=== PATIENT | female | born 1990 | race Caucasian/White ===

== ENCOUNTER 2016-05-27 18:42 | Emergency (ER) | payer OTHER ==
[2016-05-27 18:56] VITALS: BP 120/67; PULSE 73; TEMP 97.8; BMI 27.6
[2016-05-27 20:06] LABS: URINE APPEARANCE CLEAR; URINE BILIRUBIN NEGATIVE (NEGATIVE); URINE BLOOD NEGATIVE (NEGATIVE); URINE COLOR YELLOW; URINE GLUCOSE (UA) NEGATIVE (NEGATIVE); URINE KETONE NEGATIVE (NEGATIVE); URINE LEUK ESTERASE NEGATIVE (NEGATIVE); URINE NITRITE NEGATIVE (NEGATIVE); URINE PROTEIN NEGATIVE (NEGATIVE); URINE UROBILINOGEN NEGATIVE E.U./dl (0.2-1.0)
--- NOTE | 2016-05-27 20:57 | PDOC ---
History of Present Illness - General Chief Complaint: Urinary Problem Stated Complaint: URINARY PROBLEM Time Seen by Provider: 05/27/16 20:42 History Source: Patient Exam Limitations: No Limitations - History of Present Illness Travel History: No Initial Comments: 05/27/16 20:55 25 yr female with one month of urinary incontinence, frequency and urgency, no burning. Pt has right low back pain to flank history of kidney stones. no vomiting or diarrhea no fever, no vaginal discharge. Past History - Past Medical History Allergies/Adverse Reactions: Allergies Allergy/AdvReac Type Severity Reaction Status Date / Time No Known Allergies Allergy Verified 05/27/16 18:52 Home Medications: Ambulatory Orders No Home Medications 0 dose .ROUTE UTDICT 05/28/12 Ibuprofen [Motrin -] 600 mg PO TID #21 tablet 09/23/13 Pantoprazole Sodium [Protonix] 40 mg PO DAILY #20 tablet. 09/23/13 Kidney Stones: Yes Suicide Attempt (Hx): No - Surgical History Cholecystectomy: Yes - Immunization History Immunization Up to Date: Yes - Psycho/Social/Smoking Cessation Hx Anxiety: No Suicidal Ideation: No Smoking Status: Yes Smoking History: Current every day smoker Have you smoked in the past 12 months: Yes Number of Cigarettes Smoked Daily: 4 Information on smoking cessation initiated: No 'Breaking Loose' booklet given: 09/22/13 Hx Alcohol Use: Yes (occasion) Abd/GI Specific PMHX - Complaint Specific PMHX Colitis: No Gall Bladder Disease: Yes GERD: No Hepatitis: No Irritable Bowel Synd (IBS): No Pancreatitis: No GI Ulcer Disease: No Review of Systems - Review of Systems Able to Perform ROS?: Yes Is the patient limited [place] proficient: No Constitutional: No: Symptoms Reported HEENTM: No: Symptoms Reported Respiratory: No: Symptoms reported Cardiac (ROS): No: Symptoms Reported ABD/GI: No: Symptoms Reported : Yes: Symptoms Reported, See HPI, Frequency, Urgency Musculoskeletal: Yes: Back Pain Integumentary: No: Symptoms Reported Neurological: No: Symptoms reported *Physical Exam - Vital Signs Last Vital Signs Temp Pulse Resp BP Pulse Ox 97.8 F 73 19 120/67 99 05/27/16 18:52 05/27/16 18:52 05/27/16 18:52 05/27/16 18:52 05/27/16 18:52 - Physical Exam General Appearance: Yes: Nourished, Appropriately Dressed HEENT: positive: EOMI, MARÍA, TMs Normal, Pharynx Normal Neck: positive: Supple Respiratory/Chest: positive: Lungs Clear, Normal Breath Sounds Cardiovascular: positive: Regular Rhythm, Regular Rate Female Pelvic Exam: positive: normal external exam. negative: CMT, discharge, adnexal tenderness Gastrointestinal/Abdominal: positive: Normal Bowel Sounds, Soft Musculoskeletal: positive: Normal Inspection Extremity: positive: Normal Capillary Refill, Normal Inspection, Normal Range of Motion Integumentary: positive: Normal Color, Dry, Warm Neurologic: positive: Fully Oriented, Alert, Normal Mood/Affect, Normal Response , Motor Strength 08/26 ED Treatment Course - LABORATORY CBC & Chemistry Diagram: 05/27/16 21:10 05/27/16 21:10 - ADDITIONAL ORDERS Additional order review: Laboratory Results 05/27/16 19:35 Urine Color Yellow Urine Appearance Clear Urine pH 6.0 Ur Specific [place] 1.023 Urine Protein Negative Urine Glucose (UA) Negative Urine Ketones Negative Urine Blood Negative Urine Nitrite Negative Urine Bilirubin Negative Urine Urobilinogen Negative Ur Leukocyte Esterase Negative Urine HCG, Qual Negative - RADIOLOGY Radiology Studies Ordered: Category Date Time Status KIDNEY / RENAL US [US] Stat Ultrasound 05/27/16 20:53 Ordered Progress Note - Progress Note Progress Note: spoke with patient this morning regarding her US results from yesterday. I have explained the results with her. Pt is going to follow with urology at [facility] this week. Pt will obtain copies of her US to bring to the [facility]. Medical Decision Making - Medical Decision Making 05/27/16 20:56 cc: urinary urgency, incontinence frequency for one month with low back pain will check UA r/o UTI, kidney stone *DC/Admit/Observation/Transfer Diagnosis at time of Disposition: Urinary incontinence in female - Discharge Dispostion Disposition: HOME Condition at time of disposition: Good - Referrals Referrals: Nicole Askew [Primary Care Provider] - Shree Brown MD [Staff Physician] - - Patient Instructions Additional Instructions: follow with the urologist or with your whizzer for follow up I will call you tomorrow with the results of the ultrasound all blood work done today was within normal limits
[2016-05-27 21:32] LABS: BASOPHIL 0.4 % (0-2.0); EOSINOPHIL 1.9 % (0-4.5); MCH 29.5 pg (25.7-33.7); MCHC 33.5 g/dl (32.0-36.0); MEAN CELL VOLUME 88.1 fl (80-96); NEUTROPHILS 57.7 % (42.8-82.8); PLATELET COUNT 289 K/MM3 (134-434); RDW 12.8 % (11.6-15.6); WHITE BLOOD COUNT 11.6 K/mm3 (4.0-10.0)
[2016-05-27 22:01] LABS: ALBUMIN 4.1 g/dl (3.4-5.0); ANION GAP 9 (8-16); CALCIUM 9.6 mg/dL (8.5-10.1); CO2 26 mmol/L (21-32); CREATININE 0.7 mg/dL (0.55-1.02); GLUCOSE,RANDOM 82 mg/dL (74-106); SGOT/AST 29 U/L (15-37); SGPT/ALT 35 U/L (12-78)
[2016-05-27 22:04] LABS: ALK PHOS 64 U/L (45-117); BILIRUBIN,TOTAL 0.6 mg/dL (0.2-1.0); TOT PROT 7.4 g/dl (6.4-8.2)
== END 2016-05-27 22:51 | disposition home or self-care (01) ==
LOC: JERFT 18:42
DX: N39.498 Other specified urinary incontinence (principal)
CPT/HCPCS: 36415; 76775-TC; 76856-TC; 80053; 81003; 84703; 85025; 87086; 87491; 87591; 99281-25

== ENCOUNTER 2016-08-31 11:52 | Day surgery (SDC) | payer OTHER ==
[2016-08-30 17:13] VITALS: BMI 28.3
[2016-08-31] MEDS ORDERED: PROPOFOL 20 ML ONE ×2 (12:46)
[2016-08-31] MEDS ORDERED: MIDAZOLAM HCL 2 MG/2 ML SINGLE DOSE VIAL ONE (12:46)
[2016-08-31] MEDS ORDERED: DEXAMETHASONE SOD PHOSPHATE 4 MG/1 ML VIAL ONE (12:51)
[2016-08-31] MEDS ORDERED: KETOROLAC TROMETHAMINE 30 MG/1 ML VIAL ONE (12:51)
[2016-08-31] MEDS ORDERED: ceFAZolin SODIUM 1 GM VIAL ONE (13:13)
[2016-08-31] MEDS ORDERED: ceFAZolin SODIUM 1 GM VIAL IVPB ONE (13:26)
[2016-08-31] MEDS ORDERED: oxyCODONE HCL 5 MG TABLET PO PRN ×2 (13:50→14:54)
[2016-08-31] MEDS ORDERED: OXYCODONE/APAP 5/325MG COMBO TABLET PO PRN (13:55)
[2016-08-31] MEDS ORDERED: ONDANSETRON 4 MG/2 ML VIAL IVPUSH PRN (14:12)
[2016-08-31] MEDS ORDERED: LACTATED RINGERS SOLUTION 1,000 ML IV SCH (14:15)
[2016-08-31] MEDS ORDERED: ACETAMINOPHEN 325 MG TABLET (FP) PO PRN (14:54)
[2016-08-31 15:32] VITALS: TEMP 98.8
[2016-08-31 16:53] VITALS: BP 123/70; PULSE 80
--- NOTE | 2016-09-01 09:20 | OP ---
DATE OF OPERATION: 08/31/2016 SURGEON: Xenia Jane MD ANESTHESIA: General. PREOPERATIVE DIAGNOSIS: Recurrent urinary tract infection, urethral polyp, and neurogenic bladder. POSTOPERATIVE DIAGNOSIS: Recurrent urinary tract infection, urethral polyp, and neurogenic bladder. PROCEDURE: Cystoscopy and fulguration of bladder polyps and Avila catheterization. FINDINGS: Anterior urethra is normal. Bladder neck area showed multiple polyps. Bladder essentially normal. DESCRIPTION OF PROCEDURE: Using 23 Prieto resectoscope, cystoscopy performed, and the bladder neck polyps were fulgurated. Patient tolerated the procedure well. Avila catheter was placed. Patient left the operating room in satisfactory condition. Shine NUNEZ/[id number]
== END 2016-08-31 16:54 | disposition home or self-care (01) ==
LOC: JASU-SURG 11:52
PROVIDERS: ATTEND Urology
PROC: 0T5C8ZZ Destruction of Bladder Neck, Via Natural or Artificial Opening Endoscopic (ICD-10-PCS; principal; 2016-08-31 13:00)
DX: N39.0 Urinary tract infection, site not specified (principal); D41.4 Neoplasm of uncertain behavior of bladder; N31.9 Neuromuscular dysfunction of bladder, unspecified
CPT/HCPCS: 84703; 94760

== ENCOUNTER 2018-05-26 17:37 | Emergency (ER) | payer OTHER ==
[2018-05-26 17:56] VITALS: PULSE 68; BMI 27.8
--- NOTE | 2018-05-26 17:59 | PDOC ---
Attending Attestation - Resident Resident Name: Xochilt Cordoba - ED Attending Attestation I have performed the following: I have examined & evaluated the patient, The case was reviewed & discussed with the resident, I agree w/resident's findings & plan, Exceptions are as noted - Medical Decision Making 05/26/18 17:59 I, Dr. Madina Andrade, DO, attest that this document has been prepared under my direction and personally reviewed by me in its entirety. I further attest, that it accurately reflects all work, treatment, procedures and medical decision -making performed by me. 05/26/18 18:14 a/p: 27yo female presents ambulatory from urgent care for eval of RLQ pain -R pelvic pain -neg mcburneys, neg rovsing -no n/v/d -non toxic in appearance -will send labs, tvus -will monitor and reassess <Madina Andrade - Last Filed: 05/26/18 18:14> - HPI HPI: 05/26/18 18:31 The patient is a 27 year old female, with a significant past medical history of urethral polyps (surgically removed), spastic bladder, and kidney stones, who presents to the emergency department with, 4 hours of intermittent, sharp, 6/10 pain with associated urinary frequency and urgency. She notes going to urgent care prior to her arrival where at which she was advised to report to the ED for further evaluation. Patient endorses left flank pain last week and one episode of bloody vaginal discharge. She denies recent fevers, chills, headache or dizziness. She denies recent nausea, vomit, diarrhea or constipation. She denies recent dysuria or hematuria. She denies recent chest pain or shortness of breath. Allergies: Lexapro, Zoloft Past surgical history: Cholecystectomy. Social history: Smoker (2 cigarettes per day). Primary Care Physician: Dr. Askew Urologist: Dr. Jane - Physicial Exam PE: 05/26/18 18:31 Constitutional: Awake, alert, oriented. No acute distress. Head: Normocephalic. Atraumatic Neck: Supple. Full ROM. No lymphadenopathy. Cardiovascular: Regular rate. Regular rhythm. S1, S2 regular. Distal pulses are 2+ and symmetric. Pulmonary/Chest: No evidence of respiratory distress. Clear to auscultation bilaterally No wheezing, rales or rhonchi. +Abdominal: Right sided pelvic pain. Negative McBurney's. Negative [place]. Negative rovsing. Soft and non-distended. No rebound, guarding or rigidity. No organomegaly. No palpable masses. Good bowel sounds. Pelvic: Refer to resident exam. Back: No CVA tenderness. Musculoskeletal: No edema. No cyanosis. No clubbing. Full range of motion in all extremities. No calf tenderness. Radial/pedal pulses are intact and 2+ bilaterally Skin: Skin is warm and dry. No petechiae. No purpura. Neurological: Alert and oriented to person, place, and time. Cranial nerves II -XII are grossly intact. Normal speech. Strength is grossly symmetric. No sensory deficits. Psychiatric: Good eye contact. Normal interaction, affect and behavior. <Magalys Pham - Last Filed: 05/26/18 18:32> Attestations - Attestations 05/26/18 18:32 Documentation prepared by Magalys Pham, acting as medical appliance maker for Madina Andrade DO. <Magalys Pham - Last Filed: 05/26/18 18:32>
--- NOTE | 2018-05-26 18:15 | PDOC ---
History of Present Illness - General Chief Complaint: Pain Stated Complaint: APENDIX Time Seen by Provider: 05/26/18 17:52 History Source: Patient Exam Limitations: No Limitations - History of Present Illness Initial Comments: 05/26/18 18:10 Pt is a 27yo F with PMH of urethral polyps (benign) s/p polypectomy, kidney stones, spastic bladder, s/p cholecystectomy presenting to ED with complaints of RLQ abdominal pain that started 4 hours ago. Pt states that the pain is located in the RLQ, does not radiate, is intermittent, feels like a stabbing pain, 6/10 at the worst. She endorses urinary frequency and urgency. She also states that she had an episode of "bloody vaginal discharge" last week. She denies n/v/d, fevers, chills, history of STD in her and in partner, chest pain, sob. LMP 2 weeks ago. Does not use contraception or control. Went to urgent care today and was told to come to the ED for further evaluation. PMD: Jamilah PMH: see hpi PSH: see hpi Meds: none Allergies: Lexapro, Zoloft Social: smokes 2 cigarettes/day Past History - Past Medical History Allergies/Adverse Reactions: Allergies Allergy/AdvReac Type Severity Reaction Status Date / Time escitalopram oxalate Allergy "MIGRAINE,VOMITING Verified 05/26/18 17:44 [From Lexapro] SKIN IRRITATION" sertraline [From Zoloft] Allergy Verified 05/26/18 17:44 Home Medications: Ambulatory Orders NK [No Known Home Medication] 05/26/18 COPD: No Kidney Stones: Yes Thyroid Disease: (PARATHYROIDECTOMY) - Surgical History Cholecystectomy: Yes - Immunization History Immunization Up to Date: Yes - Suicide/Smoking/Psychosocial Hx Smoking Status: Yes Smoking History: Current every day smoker Have you smoked in the past 12 months: Yes Number of Cigarettes Smoked Daily: 2 Information on smoking cessation initiated: No 'Breaking Loose' booklet given: 08/31/16 Hx Alcohol Use: Yes Drug/Substance Use Hx: No Substance Use Type: Alcohol Hx Substance Use Treatment: No Review of Systems - Review of Systems Constitutional: No: Chills, Fever, Loss of Appetite HEENTM: No: Symptoms Reported Respiratory: No: Cough, Shortness of Breath Cardiac (ROS): No: Lightheadedness, Palpitations, Syncope ABD/GI: Yes: See HPI, Abdominal cramping. No: Abdominal Distended, Blood Streaked Bowels, Constipated, Diarrhea, Nausea, Rectal Bleeding, Vomiting, Tarry Stools : Yes: See HPI, Frequency, Urgency. No: Burning, Dysuria, Flank Pain Musculoskeletal: No: Back Pain Integumentary: No: Symptoms Reported Neurological: No: Headache, Numbness, Tingling *Physical Exam - Vital Signs Last Vital Signs Temp Pulse Resp BP Pulse Ox 97.9 F 68 18 125/71 99 05/26/18 17:45 05/26/18 17:45 05/26/18 17:45 05/26/18 17:45 05/26/18 17:45 - Physical Exam General Appearance: Yes: Nourished, Appropriately Dressed, Other (well appearing ). No: Apparent Distress HEENT: positive: EOMI, MARÍA Neck: positive: Trachea midline, Supple Respiratory/Chest: positive: Lungs Clear, Normal Breath Sounds. negative: Crackles, Rales, Rhonchi Cardiovascular: positive: Regular Rhythm, Regular Rate, S1, S2. negative: Edema , JVD, Murmur Vascular Pulses: Carotid (R): 2+, Carotid (L): 2+, Dorsalis-Pedis (R): 2+, Doralis-Pedis (L): 2+ Female Pelvic Exam: negative: CMT, adnexal tenderness, vaginal bleeding Gastrointestinal/Abdominal: positive: Normal Bowel Sounds, Soft, Tenderness ( slight RUQ tenderness. Negative ortiz, negative rosving, negative mcburney). negative: Distended, Guarding, Rebound, Hernia, Mass Musculoskeletal: negative: CVA Tenderness Extremity: positive: Normal Capillary Refill. negative: Calf Tenderness Integumentary: positive: Normal Color, Dry, Warm Neurologic: positive: oiler bander II-XII NML intact, Fully Oriented, Alert, Normal Mood/ Affect, Normal Response, Motor Strength 5/5 Moderate Sedation - Procedure Monitoring Vital Signs: Procedure Monitoring Vital Signs Temperature 97.9 F 05/26/18 17:45 Pulse Rate 68 05/26/18 17:45 Respiratory Rate 18 05/26/18 17:45 Blood Pressure 125/71 05/26/18 17:45 O2 Sat by Pulse Oximetry (%) 99 05/26/18 17:45 ED Treatment Course - LABORATORY CBC & Chemistry Diagram: 05/26/18 11:31 05/26/18 11:31 - RADIOLOGY Radiology Studies Ordered: Category Date Time Status KIDNEY / RENAL US [US] Stat Ultrasound 05/26/18 18:08 Ordered TRANSVAGINAL ULTRASOUND US [US] Stat Ultrasound 05/26/18 18:08 Ordered Medical Decision Making - Medical Decision Making 05/26/18 18:17 Pt is a 27yo F with PMH of urethral polyps (benign) s/p polypectomy, kidney stones, spastic bladder, s/p cholecystectomy presenting to ED with complaints of RLQ abdominal pain that started 4 hours ago. Pt states that the pain is located in the RLQ, does not radiate, is intermittent, feels like a stabbing pain, 6/10 at the worst. She endorses urinary frequency and urgency. She also states that she had an episode of "bloody vaginal discharge" last week. She denies n/v/d, fevers, chills, history of STD in her and in partner, chest pain, sob. LMP 2 weeks ago. Does not use contraception or control. Went to urgent care today and was told to come to the ED for further evaluation. Vitals: wnl PE: slight RUQ tenderness. Negative McBurney, negative rosving, negative ortiz. No CMT or Adnexal tenderness Ddx includes but not limited to appendicitis, TOA, Torsion, ectopic , nephrolithiasis, pyelonephritis, colitis, ovarian cyst, ruptured cyst, malignancy Low suspicion for nephrolithiasis given pt states this pain does not feel like previous stone pain. -cbc, cmp, lipase -UA, Ucx, Upreg -Pelvic US and TVUS 05/26/18 18:45 No white count, negative urine , negative UA. Pending chemistries and US Depending on US findings, may need CT if appendix not visualized. Pt signed out to night team. *DC/Admit/Observation/Transfer Diagnosis at time of Disposition: Abdominal pain Qualifiers: Abdominal location: right lower quadrant Qualified Code(s): R10.31 - Right lower quadrant pain - Referrals Referrals: Nicole Askew [Primary Care Provider] - - Patient Instructions - Post Discharge Activity
[2018-05-26 18:28] LABS: URINE APPEARANCE CLEAR; URINE BILIRUBIN NEGATIVE (<2.0 mg/dL); URINE COLOR STRAW; URINE GLUCOSE (UA) NEGATIVE (NEGATIVE); URINE KETONE NEGATIVE (NEGATIVE); URINE LEUK ESTERASE NEGATIVE (NEGATIVE); URINE NITRITE NEGATIVE (NEGATIVE); URINE PROTEIN NEGATIVE (NEGATIVE); URINE UROBILINOGEN NEGATIVE mg/dL (0.2-1.0)
[2018-05-26 18:29] LABS: HCG,QUALITATIVE URINE Negative
[2018-05-26 18:40] LABS: BASO % 0.7 % (0-2.0); EOS % 1.5 % (0-4.5); HEMATOCRIT 38.7 % (32.4-45.2); HEMOGLOBIN 13.5 GM/dL (10.7-15.3); LYMPH % 29.4 % (8-40); MCH 30.8 pg (25.7-33.7); MCHC 34.9 g/dl (32.0-36.0); MEAN CELL VOLUME 88.2 fl (80-96); MEAN PLT VOLUME 9.3 fl (7.5-11.1); MONO % 5.2 % (3.8-10.2); NEUT % 63.2 % (42.8-82.8); PLATELET COUNT 287 K/MM3 (134-434); RBC 4.38 M/mm3 (3.60-5.2); RDW 13.9 % (11.6-15.6); WHITE BLOOD COUNT 9.1 K/mm3 (4.0-10.0)
[2018-05-26 19:24] LABS: ALBUMIN 4.4 g/dl (3.4-5.0); ALK PHOS 53 U/L (45-117); ANION GAP 8 MMOL/L (8-16); BILIRUBIN,TOTAL 0.6 mg/dL (0.2-1); BLOOD UREA NITROGEN 14 mg/dL (7-18); CALCIUM 9.4 mg/dL (8.5-10.1); CHLORIDE 105 mmol/L (98-107); CO2 26 mmol/L (21-32); CREATININE 0.8 mg/dL (0.55-1.3); GLUCOSE,RANDOM 89 mg/dL (74-106); LIPASE 122 U/L (73-393); POTASSIUM 4.3 mmol/L (3.5-5.1); SGOT/AST 15 U/L (15-37); SGPT/ALT 23 U/L (13-61); SODIUM 139 mmol/L (136-145); TOT PROT 7.6 g/dl (6.4-8.2)
--- NOTE | 2018-05-26 19:49 | PDOC ---
*Physical Exam - Vital Signs Last Vital Signs Temp Pulse Resp BP Pulse Ox 97.9 F 68 18 125/71 99 05/26/18 17:45 05/26/18 17:45 05/26/18 17:45 05/26/18 17:45 05/26/18 17:45 <Mavis Fay - Last Filed: 05/26/18 20:34> - Vital Signs Last Vital Signs Temp Pulse Resp BP Pulse Ox 97.9 F 68 18 125/71 99 05/26/18 17:45 05/26/18 17:45 05/26/18 17:45 05/26/18 17:45 05/26/18 17:45 <Donte Cai - Last Filed: 05/26/18 20:38> ED Treatment Course - LABORATORY CBC & Chemistry Diagram: 05/26/18 11:31 05/26/18 11:31 - ADDITIONAL ORDERS Additional order review: Laboratory Results 05/26/18 05/26/18 18:15 11:31 Sodium 139 Potassium 4.3 Chloride 105 Carbon Dioxide 26 Anion Gap 8 BUN 14 Creatinine 0.8 Creat Clearance w eGFR > 60 Random Glucose 89 Calcium 9.4 Total Bilirubin 0.6 AST 15 ALT 23 Alkaline Phosphatase 53 Total Protein 7.6 Albumin 4.4 Lipase 122 Urine Color Straw Urine Appearance Clear Urine pH 6.0 Ur Specific [place] 1.010 Urine Protein Negative Urine Glucose (UA) Negative Urine Ketones Negative Urine Blood Negative Urine Nitrite Negative Urine Bilirubin Negative Urine Urobilinogen Negative Ur Leukocyte Esterase Negative Urine HCG, Qual Negative 05/26/18 11:31 RBC 4.38 MCV 88.2 MCHC 34.9 RDW 13.9 MPV 9.3 Neutrophils % 63.2 Lymphocytes % 29.4 Monocytes % 5.2 Eosinophils % 1.5 Basophils % 0.7 <Mavis Fay - Last Filed: 05/26/18 20:34> - LABORATORY CBC & Chemistry Diagram: 05/26/18 11:31 05/26/18 11:31 - ADDITIONAL ORDERS Additional order review: Laboratory Results 05/26/18 05/26/18 18:15 11:31 Sodium 139 Potassium 4.3 Chloride 105 Carbon Dioxide 26 Anion Gap 8 BUN 14 Creatinine 0.8 Creat Clearance w eGFR > 60 Random Glucose 89 Calcium 9.4 Total Bilirubin 0.6 AST 15 ALT 23 Alkaline Phosphatase 53 Total Protein 7.6 Albumin 4.4 Lipase 122 Urine Color Straw Urine Appearance Clear Urine pH 6.0 Ur Specific [place] 1.010 Urine Protein Negative Urine Glucose (UA) Negative Urine Ketones Negative Urine Blood Negative Urine Nitrite Negative Urine Bilirubin Negative Urine Urobilinogen Negative Ur Leukocyte Esterase Negative Urine HCG, Qual Negative 05/26/18 11:31 RBC 4.38 MCV 88.2 MCHC 34.9 RDW 13.9 MPV 9.3 Neutrophils % 63.2 Lymphocytes % 29.4 Monocytes % 5.2 Eosinophils % 1.5 Basophils % 0.7 <Donte Cai - Last Filed: 05/26/18 20:38> Medical Decision Making - Medical Decision Making 05/26/18 19:48 Patient Name: MENDOZA HOLMAN THIS IS A PRELIMINARY REPORT FROM [facility] DATE OF SERVICE: 2018-05-26 18:55:05 IMAGES: 25 EXAM: Transabdominal and transvaginal pelvic ultrasound and ovarian duplex REASON FOR EXAM: Pelvic pain COMPARISON: None. FINDINGS: The uterus is retroverted. Uterine dimensions are 7.5 x 3.8 x 4.6 cm. Endometrial stripe is normal in thickness measuring 0.8cm. Ovary dimensions are 4.4 x 2.6 x 2.4 cm for the right ovary and 3.8 x 2.7 x 2.3 cm for the left ovary. There is intact blood flow demonstrated to the ovaries. Arterial and venous spectral waveforms demonstrated. There is no evidence of torsion. There are multiple subcentimeter ovarian follicles. There is a 2.0 cm right ovarian cyst. There is no free fluid. THIS DOCUMENT HAS BEEN ELECTRONICALLY SIGNED 05/26/18 20:34 Pt feels fine and she will follow with her [facility] as an outpatient. She understands that she may return for worsening RLQ pain or vomiting or fever. She understands that we can get a CT scan that will reveal a great deal more info if needed. <Mavis Fay - Last Filed: 05/26/18 20:34> *DC/Admit/Observation/Transfer <Mavis Fay - Last Filed: 05/26/18 20:34> - Discharge Dispostion Decision to Admit order: No <Donte Cai - Last Filed: 05/26/18 20:38> Diagnosis at time of Disposition: Abdominal pain Qualifiers: Abdominal location: right lower quadrant Qualified Code(s): R10.31 - Right lower quadrant pain - Discharge Dispostion Disposition: HOME Condition at time of disposition: Improved - Referrals Referrals: Nicole Askew [Primary Care Provider] - - Patient Instructions Printed Discharge Instructions: DI for Ovarian Cyst Additional Instructions: You came into the ER with abdominal pain. We looked at your blood and urine and found no abnormalities. We did an ultrasound and didn't see any major problems. Your pain felt better after IV hydration. Continue to take ibuprofen/advil/ motrin for pain control as needed. You said you have an appointment with your OB /[facility] PRESSER doc next week and please remember to follow up with your primary GP in the next 3 to 5 days to make sure you are getting better and being taken care of. Come back to the ER immediately if your pain worsens, you get a fever, or have any other new or worsening concerns. Thank you for coming to the [facility] ER. We hope you feel better soon! Print Language: IRISH - Post Discharge Activity
[2018-05-26 20:41] VITALS: BP 123/72; TEMP 98
== END 2018-05-26 20:45 | disposition home or self-care (01) ==
LOC: JER 17:37
DX: R10.31 Right lower quadrant pain (principal); N83.201 Unspecified ovarian cyst, right side
CPT/HCPCS: 36415; 76830-TC; 76856-TC; 80053; 81003; 83690; 84703; 85025; 87086; 99283-25